=== PATIENT | female | born 1930 | race Caucasian/White ===

== ENCOUNTER 2018-12-22 12:47 | Inpatient (IN) ==
[2018-12-22 15:50] LABS: BASO# 0.04 X1000 (0.0-0.2); BASO% 0.4 % (0.0-0.8); EOS# 0.28 X1000 (0.0-0.7); EOS% 2.8 % (0.0-10.0); HEMATOCRIT 45.3 % (37.0-47.0); HEMOGLOBIN 13.4 g/dL (12.0-16.0); IMM GRAN# 0.03 X1000 (0.0-0.04); IMM GRAN% 0.3 % (0.0-0.5); LYMPH# 2.42 X1000 (1.2-3.4); LYMPH% 24.4 % (20.5-51.1); MCH 29.4 PG (27-31); MCHC 29.6 g/dL (33-37); MCV 99.3 FL (81-99); MONO# 0.74 X1000 (0.11-0.59); MONO% 7.5 % (1.7-9.3); MPV 14.3 FL (7.4-10.4); NEUT# 6.39 X1000 (1.4-6.5); NEUT% 64.6 % (42.2-75.2); PLT 90 X1000 (130-400); RBC 4.56 XMIL (4.2-5.4); RDW 15.4 % (11.5-14.5)
[2018-12-22 16:01] LABS: ALB/GLOB RATIO 1.2; ALBUMIN 3.9 g/dL (3.5-5.0); CALCIUM 9.5 mg/dL (8.8-10.2); POTASSIUM 4.8 mmol/L (3.5-5.1); TOTAL BILIRUBIN 0.38 mg/dL (0.20-1.00); TOTAL PROTEIN 7.2 g/dL (6.3-8.3)
[2018-12-22] MEDS ORDERED: 1/2 NS 1,000 ML IV ONE ×2 (16:13→17:44)
[2018-12-22 16:58] LABS: URINE SOURCE CATH
[2018-12-22 17:03] LABS: BILIRUBIN URINE NEGATIVE (NEGATIVE); BLOOD URINE SMALL (NEGATIVE); COLOR YELLOW; GLUCOSE URINE NEGATIVE (NEGATIVE); KETONE URINE 10 mg/dL (NEGATIVE); LEUKOCYTES URINE LARGE (NEGATIVE); NITRITE URINE POSITIVE (NEGATIVE); PROTEIN URINE 100 mg/dL (NEGATIVE); SP GRAVITY URINE 1.023; TURBIDITY URINE TURBID (CLEAR); UROBILINOGEN URINE NORMAL (NORMAL)
[2018-12-22 17:04] LABS: UR EPITHELIAL CELLS <10 /HPF (<10); URINE BACTERIA 4+ /HPF; URINE RBC <10 /HPF (<10); URINE WBC TNTC /HPF (<10)
[2018-12-22 17:19] LABS: URINE CASTS NONE SEEN; URINE CRYSTALS NONE SEEN; URINE SMALL ROUND CELLS TRANS PRESENT; URINE YEAST NONE SEEN
--- NOTE | 2018-12-22 17:28 | PROVIDER DOCUMENTATION ---
This chart was entered by Kathleen Reyes Scribe, acting as scribe for Mendoza Gonzales MD. HPI-General Adult - General Stated Complaint: DEMENTIA Time Seen by Provider: 12/22/18 13:15 Source: patient, EMS ([facility]) Allergies/Adverse Reactions: Patient Allergies Allergy/AdvReac Type Severity Reaction Status Date / Time No Known Allergies Allergy Verified 11/03/14 12:39 Home Medications: Home Medication List Medication Instructions Recorded Confirmed Last Taken Type Acetaminophen [Tylenol] 650 mg PO Q6H PRN PRN 11/03/14 11/03/14 Unknown History Amlodipine Besylate [Norvasc] 10 mg PO DAILY 11/03/14 11/03/14 11/03/14 07:00 History Aspirin [Aspirin EC] 81 mg PO DAILY 11/03/14 11/03/14 11/03/14 09:00 History norvas Clonidine HCl 0.1 mg PO Q6HR PRN 11/03/14 11/03/14 Unknown History Divalproex [Depakote Sprinkle] 1 cap PO DAILY 11/03/14 11/03/14 11/03/14 09:00 History Mirtazapine [Remeron] 15 mg PO DAILY 11/03/14 11/03/14 11/03/14 09:00 History Multivit,Th Iron,Other Min 1 tab PO DAILY 11/03/14 11/03/14 11/03/14 09:00 History [Thera-M] Omeprazole [Prilosec] 40 mg PO DAILY 11/03/14 11/03/14 11/03/14 05:00 History Sertraline [Zoloft] 50 mg PO DAILY 11/03/14 11/03/14 11/03/14 09:00 History Vitamin T81-Wljeuxfay Factor 1 cap PO DAILY 11/03/14 11/03/14 11/03/14 09:00 History [Martinic] Hydrocodone/Acetaminophen [[place] 1 each PO Q4H PRN PRN #30 tablet 11/06/14 Unknown Rx 10-325 Tablet] Metoprolol [Lopressor] 25 mg PO Q12HR #60 tablet 11/06/14 Unknown Rx Rivaroxaban [Xarelto] 10 mg PO Q24H #30 tablet 11/06/14 Unknown Rx - History of Present Illness -Gen Adult Nature of Presenting Problems: 88 yowf presents to the ed via ems ([email or web address]) from SNF with aggression and dementia has worsened. per ems SNF sts last time pt became this way she had a UTI. pt on exam is nontoxic in appearance and raises her fist at ems when they go to transfer her to the bed. pt refuses to answer questions but is alert and in no distress Location of Pain/Injury: reports: none Pain Radiation: reports: no radiation Quality of Pain: reports: none Severity: reports: mild Onset/Duration: reports: gradual Timing: reports: still present (change is behavior) Context/Activities at Onset: reports: light activity Modifying Factors: improves with: nothing Associated Symptoms: reports: denies symptoms Similar Symptoms Previously?: Yes (UTI) Recently seen or treated by another doctor?: No Review of Systems - Adult - REVIEW OF SYSTEMS - ADULT ROS:: limited per condition (pt refuses to answer question. ros comes from ems) Constitutional: denies: chills, fever Eyes: reports: no symptoms reported Ears, Nose, Mouth & Throat: reports: no symptoms reported Cardiovascular: denies: chest pain, syncope Respiratory: reports: no symptoms reported Gastrointestinal: denies: diarrhea, nausea, vomiting Genitourinary: reports: see HPI, frequent UTI's Musculoskeletal: reports: no symptoms reported Integumentary: reports: no symptoms reported Neurological: denies: dizziness/vertigo, syncope Psychiatric: reports: see HPI, insomnia, other (aggression) Endocrine: reports: no symptoms reported Hematologic/Lymphatic: reports: no symptoms reported Allergic/Immunologic: reports: no symptoms reported All Other Systems: Reviewed and Negative Past History - Adult - PAST MEDICAL HISTORY-ADULT Review of Records: reports: Old Records Reviewed, Nursing Assessment Review, M edications Reviewed, Social history reviewed & non-contributory. Major Childhood Illnesses: reports: denies history Cardiovascular: reports: CAD, HTN Respiratory: reports: denies history Gastrointestinal: reports: denies history Obstetrical/Gynecological: reports: denies history Genitourinary: reports: chronic UTI's Musculoskeletal: reports: denies history Neurological: reports: dementia Endocrine/Immune: reports: denies history Other Conditions: reports: denies history - PRIOR SURGERIES/PROCEDURES Surgical/Procedure History: reports: cardiac stent - IMMUNIZATION STATUS Childhood Immunizations: See Nurse Assessment Flu Vaccine: See Nurse Assessment - FAMILY HISTORY Family History: reviewed, not pertinent - SOCIAL HISTORY Smoking: quit greater than 1 year Substance Use: denies Living Situation: care facility Physical Exam-General - PHYSICAL EXAM-ADULT Exam Limited by: pt does not answers questions and is agressive in behavior/de mentia pt Initial Vital Signs Reviewed: Yes - CONSTITUTIONAL General Appearance: alert, no apparent distress - EYES Eyes: PERRL/EOMI, pink conjunctivae - HEAD, EARS, NOSE, MOUTH & THROAT HENMT: moist mucous membranes - NECK Neck: normal inspection - RESPIRATORY Respiratory: chest non-tender, lungs clear, normal breath sounds - CARDIOVASCULAR Cardiovascular: normal peripheral pulses, regular rate, rhythm - CHEST (BREASTS) Chest/Breast: deferred - GASTROINTESTINAL (ABDOMEN) Abdominal Exam: non tender, soft - MUSCULOSKELETAL Back Exam: other (pt is sitting on stretcher and back is not examined) Extremity: normal inspection - SKIN Integumentary: normal color, normal turgor, warm/dry - NEUROLOGIC Neurologic: negative: facial droop, focal weakness, motor weakness - PSYCHIATRIC Psych/Mental Status: other (does not answer questions but is alert and follows staff with her eyes) Progress - PLAN OF CARE/RESULTS Progress/Plan/Lab Results: Orders Category Date Time Status CBC WITH DIFF [HEME] Stat Lab 12/22/18 13:15 Uncollected COMPREHENSIVE METABOLIC PANEL [CHEM] Stat Lab 12/22/18 13:15 Uncollected URINALYSIS W/POSS RFLX CULT [URINALYSIS] Stat Lab 12/22/18 13:15 Uncollected Result Diagrams: 12/22/18 15:26 12/22/18 15:26 - REASSESSMENT Reassessment #1 Time Reassessed: 14:58 Status: improving (n) Reassessment #2 Time Reassessed: 17:25 Status: unchanged (pt is resting in bed; labs confirm UTI, as well as critical hypernatremia: will admit) - EKG 1 Time of EKG reading by physician:: 14:37 EKG Read and Signed by:: Mendoza Gonzales EKG Interpretation (*Must complete 3 of following elements*): Abnormal Rate: 79 Rhythm: nsr [place]: normal QRS: normal OR Interval: normal Comments: nonspecific ST abnormality - CONSULTS/PCP/HOSPITALIST Notification #1 *Consult/PCP/Hospitalist*: hospitalist dr kay Time Discussed: 17:26 Consult Disposition: Admit Departure - Departure Date of Disposition Decision: 12/22/18 Time of Disposition Decision: 17:28 DIAGNOSIS: Hypernatremia, UTI (urinary tract infection) Disposition: ADMITTED INPATIENT 09 Certified Medical Emergency: Emergent Condition: Serious Referrals and Follow-Ups: Ya Whelan MD [Primary Care Provider] - - Critical Care Note This patient required my direct & personal management of CC.: Yes Total Time (mins): 32 Critical Care Statement: This patient required my direct personal management to treat or rule out processes, the absence of which, could potentiallly result in sudden, clinically significant life or limb threatening deterioration. Attestation - Physician/ [place] Attestation Patient care was provided by Advanced Practice Provider:: No The physician spent face to face time with patient:: Yes Advanced Practice Provider documentation review:: Supervising physician onsite and consulted in the evaluation and care of this patient. The physician did have a face to face encounter with the patient. This chart was documented by the indicated scribe, (Kathleen Reyes Scribe) and accurately reflects the services I performed and decisions made by me, Mendoza Gonzales MD, as attested by the provider's signature.
[2018-12-22] MEDS ORDERED: NS 1,000 ML IV ONE (17:41)
[2018-12-22] MEDS ORDERED: D5W 1,000 ML IV ONE ×3 (17:53→19:00)
--- NOTE | 2018-12-22 18:15 | Diag Imaging Result Doc PS360 ---
EXAM: CHEST-PORTABLE - 12/22/2018 HISTORY: dyspnea TECHNIQUE: Portable chest COMPARISON: November 02 11/16/2014 FINDINGS: Positioning is mildly suboptimal with some limitation of detail at the right apex due to overlapping sternoclavicular joint. Heart size appears within normal limits. 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 There is mild linear atelectasis or scarring at the left base. Lungs otherwise appear grossly clear. There is no pleural effusion or pneumothorax identified. IMPRESSION: Mild linear atelectasis or scarring at left base. No other evidence of acute disease. Electronically signed by Chico Lainez 12/22/2018 6:13 PM
[2018-12-22] MEDS ORDERED: ZOFRAN IV PRN (18:17)
[2018-12-22 18:45] LABS: UR CREAT RANDOM 174.2 mg/dL (11-20); UR PROT RANDOM 141.1 mg/dL
--- NOTE | 2018-12-22 19:29 | HISTORY AND PHYSICAL ---
HISTORY OF PRESENT ILLNESS: Ms. Hardy is an 88-year-old female with a history of advanced dementia, coronary artery disease, hypertension, and urinary incontinence who is brought via EMS from [facility] after the patient was noted to be confused. According to the [facility] report, the patient has had poor oral intake for about 1 week. The patient would not eat or drink anything. The patient at baseline is demented and she is normally verbal, but the nursing staff became concerned when the patient was no longer talking and so she was sent to the ER. The patient will not answer questions and does not follow commands. In the ER, the patient was noted to have a sodium of 179 and a BUN of 132 with a creatinine of 3, and the serum osmolality was noted to be 409. Also, the patient was noted to have a urinary tract infection. In the ER, the patient was started on half-normal saline. PAST MEDICAL HISTORY: 1. Dementia. 2. Coronary artery disease. 3. Urinary incontinence. 4. Hypertension. 5. GERD. PAST SURGICAL HISTORY: None. SOCIAL HISTORY: The patient is an ex-smoker. She does not consume alcoholic beverages or use illicit drugs. The patient is a resident at [facility]. FAMILY HISTORY: Noncontributory due to age. ALLERGIES: No known drug allergies. MEDICATIONS: 1. Aspirin 81 mg p.o. daily. 2. Vitamin B12 500 mcg oral daily. 3. [place] 10/325 one tab oral every 4 hours p.r.n. for pain. 4. Lopressor 25 mg oral every 12 hours. 5. Remeron 7.5 mg oral at bedtime. 6. Multivitamin 1 tab oral daily. 7. Zantac 150 mg oral twice a day. 8. Senna 2 tabs oral twice a day. REVIEW OF SYSTEMS: Unable to obtain due to the patient's altered mental status. PHYSICAL EXAMINATION: VITAL SIGNS: Temperature 97.9 degrees, blood pressure 96/68, heart rate 82, respirations 19, O2 saturation 97% on room air. GENERAL: This is a chronically ill-appearing elderly female lying in bed in no acute distress. SKIN: Poor skin turgor. No rashes. HEAD: Normocephalic, atraumatic. Eyes conjunctiva clear, EOMI, PERRLA. NECK: Supple. No JVD. No lymphadenopathy. HEART: S1, S2 normal. Regular rate and rhythm. No murmurs, rubs, or gallops. LUNGS: Clear to auscultation bilaterally. No wheezing. No rales. ABDOMEN: Positive bowel sounds. Soft, nontender, nondistended. EXTREMITIES: No edema. No cyanosis. No calf tenderness. NEUROLOGIC: The patient is awake, but does not follow commands. She does respond to painful stimuli and she is able to move her arms and legs. LABS: White blood cell count 9.9, hemoglobin 13, hematocrit 45, platelets 90,000. Sodium 179, potassium 4.8, chloride 136, CO2 23, BUN 132, creatinine 3, glucose 115, serum osmolality 409, AST 16, ALT 9, alkaline phosphatase 95, albumin 3.9. UA 4+ bacteria, large leukocytes, positive for WBCs, positive for nitrites. Chest x-ray shows atelectasis or scarring at the left lung base. ASSESSMENT AND PLAN: 1. Severe hypernatremia. This is likely secondary to severe dehydration. The patient will be started on D5W. We will monitor the sodium every 4 hours. We will also monitor the urine output and the patient's mental status closely. 2. Acute kidney injury. This is likely secondary to volume depletion. We will order urine studies. We will also place a Noonan catheter and hydrate the patient and monitor her urine output closely. Will consult Nephrology. 3. Urinary tract infection. The urine culture is currently pending. We will start the patient on IV Rocephin. 4. Dementia. Aware. 5. Thrombocytopenia. Monitor closely. 6. Gastrointestinal prophylaxis. Will start the patient on IV Protonix. cc: Mable Clinton MD [facility]
--- NOTE | 2018-12-22 19:52 | Diag Imaging Result Doc PS360 ---
EXAM: CT HEAD W/O CONTRAST - 12/22/2018 HISTORY: encephalopathy TECHNIQUE: CT head without contrast COMPARISON: 10/07/2012 FINDINGS: There are atrophic changes with ventriculomegaly. The ventricles have increased in size compared to prior, which may relate to progressive atrophy or to normal pressure hydrocephalus. There are some chronic microvascular ischemic changes similar to prior. There is no indication of recent infarct, although acute infarcts may not be immediately visible. There is no evidence of intracranial hemorrhage, mass effect, or midline shift. There is no evidence of skull fracture. IMPRESSION: Atrophic changes and chronic microvascular ischemic changes. Interval ventricular enlargement compared to prior which may relate to progressive atrophy or to normal pressure hydrocephalus. No hemorrhage or mass effect. This exam was performed using automated exposure control, adjustment of mA or kV according to patient size, and/or use of iterative reconstruction technique. Electronically signed by Chico Lainez 12/22/2018 7:49 PM
[2018-12-22] MEDS: ROCEPHIN 1 GM in NS 50 ML IV SCH (20:06)
[2018-12-23] MEDS ORDERED: D5W 1,000 ML IV SCH (04:00)
[2018-12-23 04:26] LABS: BASO# 0.03 X1000 (0.0-0.2); BASO% 0.4 % (0.0-0.8); EOS# 0.42 X1000 (0.0-0.7); HEMATOCRIT 42.6 % (37.0-47.0); HEMOGLOBIN 12.7 g/dL (12.0-16.0); IMM GRAN# 0.02 X1000 (0.0-0.04); IMM GRAN% 0.2 % (0.0-0.5); LYMPH# 2.02 X1000 (1.2-3.4); MCH 29.7 PG (27-31); MCHC 29.8 g/dL (33-37); MCV 99.5 FL (81-99); MONO# 0.62 X1000 (0.11-0.59); MONO% 7.4 % (1.7-9.3); NEUT# 5.32 X1000 (1.4-6.5); PLT 82 X1000 (130-400); RBC 4.28 XMIL (4.2-5.4); RDW 15.3 % (11.5-14.5); WBC 8.43 X1000 (4.8-10.8)
[2018-12-23 04:29] LABS: SODIUM 167 mmol/L (136-145)
[2018-12-23 04:30] LABS: CHLORIDE 133 mmol/L (98-107); POTASSIUM 4.3 mmol/L (3.5-5.1)
[2018-12-23 04:31] LABS: AGAP 10; ALBUMIN 3.7 g/dL (3.5-5.0); BUN 128 mg/dL (8-22); CALCIUM 8.8 mg/dL (8.8-10.2); COSMO 378; CREATININE 2.5 mg/dL (0.5-0.9); GLUCOSE 150 mg/dL (70-104); PHOSPHORUS 3.7 mg/dL (2.7-4.5); TCO2 26 mmol/L (25-35)
[2018-12-23] MEDS: PROTONIX IV SCH (06:22)
[2018-12-23] MEDS: D5W 1,000 ML IV ONE ×2 (06:22→13:02)
--- NOTE | 2018-12-23 07:45 | EKG Report ---
Test Performed on : 12/22/2018 2:37:28 PM Test Reason : ED. NO EKG ORDER FOR MUSE Blood Pressure : / mmHG Vent. Rate : 079 BPM Atrial Rate : 079 BPM P-R Int : 126 ms QRS Dur : 074 ms QT Int : 390 ms P-R-T Axes : 061 -18 074 degrees QTc Int : 447 ms Normal sinus rhythm. Nonspecific ST abnormality Abnormal ECG When compared with ECG of 03-NOV-2014 22:56, No significant change was found Unconfirmed Result
[2018-12-23 08:50] LABS: URINE SOURCE CATH
[2018-12-23 08:55] LABS: BILIRUBIN URINE NEGATIVE (NEGATIVE); BLOOD URINE MODERATE (NEGATIVE); COLOR ORANGE; GLUCOSE URINE NEGATIVE (NEGATIVE); KETONE URINE NEGATIVE (NEGATIVE); LEUKOCYTES URINE LARGE (NEGATIVE); NITRITE URINE POSITIVE (NEGATIVE); PROTEIN URINE 200 mg/dL (NEGATIVE); SP GRAVITY URINE 1.021; TURBIDITY URINE TURBID (CLEAR); UROBILINOGEN URINE NORMAL (NORMAL)
[2018-12-23] MEDS ORDERED: HEPARIN SUBQ SCH (09:00)
[2018-12-23 09:30] LABS: UR EPITHELIAL CELLS <10 /HPF (<10); URINE BACTERIA 4+ /HPF; URINE WBC TNTC /HPF (<10)
[2018-12-23 09:59] LABS: URINE CRYSTALS TRIPLE PHOS PRESENT; URINE YEAST NONE SEEN
--- NOTE | 2018-12-23 12:51 | Diag Imaging Result Doc PS360 ---
EXAM: US RENAL 2 (RETROPER) COMPLETE HISTORY: juan/arf TECHNIQUE: Renal ultrasound COMPARISON: None. FINDINGS: The right kidney measures 7.4 x 4.0 x 3.4 cm. The kidney is hyperechoic and has cortical thinning. No stone or hydronephrosis. No mass. The left kidney measures only 7.3 x 3.2 x 4.4 cm. Increased renal echotexture with cortical thinning. No stone or hydronephrosis. No mass. There is likely fatty infiltration of the liver. IMPRESSION: Small kidneys with increased renal echotexture and cortical thinning likely due to medical renal disease. Electronically signed by Wallace Tomas 12/23/2018 12:48 PM
--- NOTE | 2018-12-23 13:39 | NEPHROLOGY CONSULTATION ---
DATE: 12/23/2018 REASON FOR ADMISSION: 1. Altered mental status. 2. Urinary tract infection. 3. Hypernatremia. 4. Severe dehydration. 5. Acute kidney injury. REASON FOR CONSULTATION: Assist with management, acute kidney injury. 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 According to report, the patient has had extremely poor intake for about a week and had not been eating or drinking anything. Her mental status declined and she was brought to the hospital for further workup and treatment. She was found to have profound hypernatremia with a sodium of 179 and acute kidney injury with a BUN of 132 and a creatinine of 3. Serum osmolality noted to be 409. She was also noted to have a severe urinary tract infection with turbid urine, 2+ protein, moderate blood, positive nitrites, too numerous to count WBCs. She had a FENa of 0.3. She has been admitted for further workup and treatment. She has had IV fluids in the form of D5W infusing overnight with serial labs. Her sodium has come down this morning to 167. Her creatinine has improved to 2.5. Her family is at the bedside. Information is obtained from the chart and from the son. He states that they have recently been told by her physicians that she is actually in end-stage dementia and that they have already made her a DNR at the hospital. He states that she has really forgotten how to eat and is minimally, minimally responsive. PAST MEDICAL HISTORY: 1. Coronary artery disease. 2. Hypertension. 3. Dementia. 4. Urinary incontinence. 5. GERD. PAST SURGICAL HISTORY: None. ALLERGIES: None. FAMILY HISTORY: Noncontributory. SOCIAL HISTORY: Resident of [facility]. No ETOH, tobacco or illicit drug use. MEDICATIONS: Home medications are 1. Aspirin. 2. Vitamin B12. 3. [place]. 4. Lopressor. 5. Remeron. 6. Multivitamin. 7. Zantac. Senna. REVIEW OF SYSTEMS: Unable. PHYSICAL EXAMINATION: Vital Signs: Temperature 98.3 degrees, pulse 77, respiratory rate 16, blood pressure 109/84. Intake 948 mL, output 80 mL. General: This is a chronically ill- appearing, elderly female, resting in bed. She will rouse to verbal stimuli and says hello. She is unable to tell me name, place, time. HEENT: Normocephalic, atraumatic. Her conjunctivae are pink. Her oral mucosa is extremely dry. Neck: Supple. There is no JVD. Cardiovascular: Reveals a regular rate and rhythm without gallop. Pulmonary: She has decreased breath sounds but no adventitious noise noted. Abdomen: Soft. No tenderness elicited upon palpation. : Noonan catheter. Small amount of urine noted. Extremities: No clubbing, cyanosis, edema Integumentary: Skin is pale, warm, and dry. Neurologic: Awake. Does not follow commands. LABORATORY DATA: WBC of 8.4, hemoglobin 12.7. Sodium 167 potassium 4.3, chloride 133, CO2 26, BUN 128, creatinine 2.5. She has a FENa of 0.3. Her urinalysis again with turbid. Urine 2+ protein, moderate blood, positive nitrites, large leukocytes, too numerous to count WBCs, 4+ bacteria, triple phosphorus crystals seen. IMAGING: Head CT and chest x-ray negative. ASSESSMENT/PLAN: 1. Acute kidney injury in the setting of profound intravascular volume depletion. The patient is being appropriately fluid resuscitated and has a modest response in renal function. She has begun making a tiny amount of urine and creatinine has dropped to half a point just overnight. She has no indication for intervention otherwise and quite frankly is not a candidate for any type of chronic intervention such as dialysis. I had a discussion with the son and they are very understanding that with her end-stage dementia that medical management is all that is appropriate. 2. Electrolytes, acid-base balance. Again see #1 for plan. Continue current treatment plan. Dictated by CHU Maharaj for Jacoby Dunne MD Face to face encounter, data reviewed, discussed with Norman Villa on 12/23/18. I agree with the above assessment and plan of care. cc: Jacoby Dunne MD [facility]
[2018-12-23] MEDS ORDERED: D5 1/2 NS 1,000 ML IV SCH (14:30)
[2018-12-23] MEDS: D5W 1,000 ML IV SCH (17:30)
[2018-12-23] MEDS: ROCEPHIN 1 GM in NS 50 ML IV SCH (17:31)
--- NOTE | 2018-12-23 17:39 | PROGRESS NOTE ---
DATE: 12/23/2018 SUBJECTIVE: The patient is resting comfortably in bed. Her son is present at the bedside. OBJECTIVE: Vital Signs: Temperature 98.3 degrees, blood pressure 136/58, heart rate 109, respirations 16, and O2 saturation 98% on room air. General: This is a chronically ill-appearing elderly female lying in bed in no acute distress. Heart: S1, S2 normal. Regular rate and rhythm. Lungs: Equal air entry. No wheezing. No rales. No rhonchi. Abdomen: Positive bowel sounds. Soft, nontender and nondistended. Extremities: No edema. No cyanosis. Neurologic: The patient is awake, but only oriented to self. LABORATORY: Sodium: 170, potassium: 3.5, CO2 26, BUN 128, creatinine 2.5, and glucose 152. ASSESSMENT AND PLAN: 1. Severe hypernatremia. Continue with D5W. We will continue to monitor the sodium closely. Nephrology is following. 2. Acute kidney injury. Continue with IV fluid resuscitation. We will continue to monitor the urine output closely. 3. Urinary tract infection. The urine culture is growing gram-negative rods. Continue on Rocephin pending the results of the culture. 4. Dementia. Aware. 5. Chronic thrombocytopenia. Aware. 6. The patient's mom was updated on the patient's medical condition. The patient is currently a DNR level 1. cc: Mable Clinton MD [facility]
[2018-12-24] MEDS: D5W 1,000 ML IV SCH ×2 (01:05→06:06)
[2018-12-24 04:01] LABS: HEMATOCRIT 36.8 % (37.0-47.0); HEMOGLOBIN 10.9 g/dL (12.0-16.0); MCHC 29.6 g/dL (33-37); MCV 97.9 FL (81-99); PLT 62 X1000 (130-400); RBC 3.76 XMIL (4.2-5.4); RDW 15.1 % (11.5-14.5); WBC 6.45 X1000 (4.8-10.8)
[2018-12-24 04:32] LABS: CALCIUM 8.4 mg/dL (8.8-10.2); PHOSPHORUS 2.5 mg/dL (2.7-4.5); POTASSIUM 3.5 mmol/L (3.5-5.1)
[2018-12-24] MEDS: PROTONIX IV SCH (06:06)
[2018-12-24] MEDS: SODIUM CHLORIDE 0.9% INJ SCH (06:06)
--- NOTE | 2018-12-24 08:59 | PROGRESS NOTE ---
DATE: 12/24/2018 SUBJECTIVE: The patient is resting comfortably in bed. No acute events noted overnight. OBJECTIVE: Vital Signs: Temperature 97.9 degrees, blood pressure 120/57, heart rate 64, respirations 14, O2 saturation 91% on room air. General: This is a chronically ill-appearing elderly female, lying in bed in no acute distress. Heart: S1, S2 normal. Regular rate and rhythm. Lungs: Equal air entry bilaterally. No wheezing. No rales. No rhonchi. Abdomen: Positive bowel sounds. Soft, nontender, nondistended. Extremities: No edema. No cyanosis. No calf tenderness. Neurologic: The patient is awake but demented. LABORATORY DATA: White blood cell count 6.4, hemoglobin 10, hematocrit 36, platelets 62,000. Sodium 156, potassium 3.5, chloride 122, CO2 24, BUN 94, creatinine 2, glucose 169, phos 2.5, albumin 3. Urine culture is growing Proteus. ASSESSMENT AND PLAN: 1. Hypernatremia. Slowly improving. Continue on D5W. Management as per the release engineer. 2. Acute kidney injury. Slowly improving. 3. Urinary tract infection secondary to Proteus. Continue on Rocephin. 4. Thrombocytopenia. The patient's platelet count continues to drop. We will consult with Hematology. 5. Dementia. Aware. 6. Constipation. Will start laxative therapy. 7. Protein calorie malnutrition. Will start megace and Ensure. 8. Disposition. The patient is currently a DNR level 1. I updated the patient's son on the patient's medical condition. cc: Mable Clinton MD [facility]
--- NOTE | 2018-12-24 09:54 | NEPHROLOGY PROGRESS NOTE ---
DATE: 12/24/2018 SUBJECTIVE: Patient resting in bed. She will arouse to verbal and tactile stimuli. She does not follow commands. OBJECTIVE: Vital Signs: Temperature 98.2 degrees, pulse 79, respiratory rate 14, blood pressure 114/32. Intake 566 mL, output 350 mL via Noonan catheter. General: This is an elderly female, resting in bed. She is chronically ill-appearing and demented. HEENT: Normocephalic, atraumatic. ARNIE. Neck: Supple without JVD. Cardiovascular: Regular rate and rhythm. No murmur. Pulmonary: She has equal excursion. She has decreased breath sounds bilaterally. She has no increased work of breathing. Abdomen: Soft. No tenderness elicited on palpation. : Noonan catheter. Extremities: No clubbing, cyanosis, or edema. Integumentary: Skin is pale, warm, and dry. LABORATORY DATA: WBC of 6.4, hemoglobin 10.9. Sodium 158, potassium 3.5, CO2 of 24, BUN 94, creatinine 2.0. ASSESSMENT AND PLAN: Hypernatremia and acute kidney injury in the setting of intravascular volume depletion. The patient has been successfully fluid resuscitated over the last 24 hours. It appears that she has reached a euvolemic state on her exam. Will decrease her intravenous fluids to 75 mL an hour, continue at D5 only secondary to the fact that she still has a sodium of 158. Dictated by CHU Maharaj for Jacoby Dunne MD Face to face encounter, data reviewed, discussed with Norman Villa on 12/24/18. I agree with the above assessment and plan of care. cc: Jacoby Dunne MD [facility]
[2018-12-24] MEDS ORDERED: BLISTEX MEDICATED BERRY LIP BALM TOP PRN (10:10)
--- NOTE | 2018-12-24 10:57 | Diag Imaging Result Doc PS360 ---
EXAM: ABDOMEN FLAT/UPRIGHT 12/24/2018 HISTORY: constipation TECHNIQUE: Flat and upright abdomen portable at 1040 COMMENT: There is stool throughout the colon. There is no evidence of organomegaly or mass. The stomach and small bowel are not distended. IMPRESSION: Constipation. Electronically signed by Perico Bustillos 12/24/2018 10:55 AM
--- NOTE | 2018-12-24 10:58 | Diag Imaging Result Doc PS360 ---
EXAM: CHEST-PORTABLE 12/24/2018 HISTORY: dyspnea TECHNIQUE: AP portable at 1038 COMMENT: There is obscuration of the left heart border which may be in part due to a fat pad. The patient is less rotated to the right than on the previous study of 12/22/2018. Compared to 11/03/2014 the left costophrenic angle is more opacified however. IMPRESSION: Lingular and/or left lower lobe atelectasis in the costophrenic angle region. Electronically signed by Perico Bustillos 12/24/2018 10:56 AM
[2018-12-24 13:27] LABS: INR 1.05; PROTIME 13.9 Seconds (11.0-16.0); PTT 25.8 Seconds (22.3-41.8)
[2018-12-24] MEDS: MEGACE LIQUID PO SCH ×2 (14:01→21:21)
[2018-12-24] MEDS: COLACE PO SCH (14:07)
[2018-12-24] MEDS: MIRALAX PO SCH (14:07)
--- NOTE | 2018-12-24 18:37 | HEMO/ONC CONSULTATION ---
DATE: 12/24/2018 CONSULTATION REQUESTED BY: Hospitalist service. CONSULTATION FOR: Thrombocytopenia. HISTORY OF PRESENT ILLNESS: Ms. Hardy is an 88-year-old female who initially presented to the [facility] Emergency Department with acute altered mental status. The patient has a history of dementia but had become combative and delirious. Upon presentation she is found to be severely hypernatremic with a sodium of 176. She also found to be in acute renal failure. She also has a UTI and is currently taking Rocephin. On presentation she had a platelet count of 90,000. Is now fallen to 62,000 we have been consulted for further evaluation and treatment. PAST MEDICAL HISTORY: 1. Seizure disorder. 2. Dementia. 3. Coronary artery disease. 4. Hypertension. PAST SURGICAL HISTORY: None. Of note, all the patient's past medical history, past surgical history and other information coming from the chart. The patient is demented and unable to answer any questions. SOCIAL HISTORY: Patient is an ex-smoker. She does not use any alcoholic beverages or illicit drugs. She is a resident of [facility]. FAMILY HISTORY: There is none documented. Again there is no one at her bedside and patient unable to answer questions. REVIEW OF SYSTEMS: Unable to obtain due to the patient's current state. PHYSICAL EXAMINATION: Vital Signs: Temperature 97.6 degrees, heart rate 64, respirations 16, blood pressure 104/42, O2 saturation 100% on room air. General: This is an elderly female who is in her hospital bed. There is no one at bedside. She does not answer any questions. She is alert and awake. She just mumbles when you speak to her though. HEENT: Head normocephalic, atraumatic. Pupils appear to be okay. Gross auditory acuity intact. Assume that the patient can hear but unsure. Cardiovascular: S1, S2 heard. Respiratory: Coarse breath sounds noted. Gastrointestinal: Soft. Positive bowel sounds. Musculoskeletal: She has arthritic changes throughout. Extremities: No edema. Neurologic: Again the patient is alert and awake but unable to tell she is oriented. LABS AND STUDIES: Platelet count 62,000 as previously mentioned. White count 6.45, hemoglobin 10.9 today. Sodium is down to 156, creatinine is down to 2.0. ASSESSMENT AND PLAN: 1. Thrombocytopenia. Review of historical labs showed the patient previously had normal platelet count back in 2014. We do not have any more recent labs to compare to. From review of the chart, it does not look like she has been exposed to heparin this hospitalization or any time in the past. She has been recently started on Rocephin but she came in with a low platelet count. We suspected this could possibly be nutritional. We are going go ahead and check vitamin studies. Will also make sure to rule out DIC. Otherwise will just monitor the platelet count closely and plan to provide supportive care as needed. 2. Severe hypernatremia. Continue current management per the primary team. 3. Acute renal injury. This seems to be improving with hydration. Continue per the primary team. 4. Urinary tract infection. Again the patient is on Rocephin as per above. We want thank you for consulting us on Ms. Hardy, will continue follow along adjust our treatment plan per her hospital course. Dictated by JESI Pretty for Namoi Hooper MD cc: Naomi Hooper MD I have seen and examined the patient and the above note reflects my history, exam, assessment and plan. Naomi LEA
[2018-12-24] MEDS: ROCEPHIN 1 GM in NS 50 ML IV SCH (18:52)
[2018-12-24] MEDS: DULCOLAX PR SCH (21:21)
[2018-12-24] MEDS: SENOKOT PO SCH ×2 (21:21→21:50)
[2018-12-25] MEDS: D5W 1,000 ML IV SCH (05:36)
[2018-12-25 05:46] LABS: HEMATOCRIT 35.4 % (37.0-47.0); HEMOGLOBIN 10.9 g/dL (12.0-16.0); MCH 29.8 PG (27-31); MCHC 30.8 g/dL (33-37); MCV 96.7 FL (81-99); PLT 59 X1000 (130-400); RBC 3.66 XMIL (4.2-5.4); RDW 14.6 % (11.5-14.5); WBC 4.65 X1000 (4.8-10.8)
[2018-12-25 05:49] LABS: HEMOGLOBIN A1C 5.1 % (4.8-6.0)
[2018-12-25 06:12] LABS: ALBUMIN 2.9 g/dL (3.5-5.0); CALCIUM 8.6 mg/dL (8.8-10.2); CREATININE 1.7 mg/dL (0.5-0.9); PHOSPHORUS 2.7 mg/dL (2.7-4.5); POTASSIUM 3.6 mmol/L (3.5-5.1)
[2018-12-25] MEDS: PROTONIX IV SCH (08:24)
[2018-12-25] MEDS: MEGACE LIQUID PO SCH ×2 (09:35→22:18)
[2018-12-25] MEDS: SENOKOT PO SCH ×3 (09:35→22:22)
[2018-12-25] MEDS: MIRALAX PO SCH (09:35)
[2018-12-25] MEDS: COLACE PO SCH (09:35)
[2018-12-25] MEDS ORDERED: NS 250 ML ONE (10:13)
--- NOTE | 2018-12-25 14:08 | NEPHROLOGY PROGRESS NOTE ---
DATE: 12/25/2018 SUBJECTIVE: Patient awake. She verbalizes. Her son at the bedside stated she recognized him and called him by name today, which is the first time she had done that in many weeks or possibly months. OBJECTIVE: Vital Signs: Temperature 97.4 degrees, pulse 95, respiratory rate 18, blood pressure 103/56, intake 1.1 L, output 325 mL. General: This is a chronically ill- appearing, elderly female, resting in bed. She is awake and alert. She is confused and does not follow commands. HEENT: Normocephalic, atraumatic. ARNIE. Neck: Supple. No JVD. Cardiovascular: Regular rate and rhythm. No murmur or gallop. Pulmonary: Equal excursion. Clear. Abdomen: Soft. Positive bowel sounds. : Noonan catheter. Extremities: No clubbing, cyanosis, or edema. Integumentary: Skin is warm and dry, pale. LAB DATA: WBC 4.6, hemoglobin 10.9. Platelets 62,000, sodium 150, potassium 3.6, CO2 24, chloride 116, BUN 72, creatinine 1.7. ASSESSMENT AND PLAN: 1. Acute kidney injury, hypernatremia in the setting of intravascular volume depletion. Patient has had continued improvement in both her creatinine and sodium levels with her current IV fluids at D5. It is noted that the patient's IV infiltrated last night. They have been unsuccessful to replace an IV. From a renal perspective, we would be acceptable with a PICC line in order to maintain continued IV fluids as the patient clearly by her labs and on exam is not completely euvolemic at this time. She does not ask for water and maintaining hydration will be important in moving forward. We did discuss this with the son at the bedside that fluids would likely need to be pushed for the patient. She will not ask for them secondary to her advanced dementia. 2. UTI Proteus mirabilis noted. No changes to antibiotics as she is on ceftriaxone. Should provide coverage. Dictated by CHU Mahaarj for Jacoby Dunne MD Face to face encounter, data reviewed, discussed with Norman Villa on 12/25/18. I agree with the above assessment and plan of care. cc: Jacoby Dunne MD [facility]
--- NOTE | 2018-12-25 15:19 | PROGRESS NOTE ---
DATE: 12/25/2018 SUBJECTIVE: The patient is resting comfortably in bed. No acute events noted overnight. The patient is still not eating or drinking very much as per the nursing staff. OBJECTIVE: Vital Signs: Temperature 97.4 degrees, blood pressure 82/43, heart rate 94, respirations 18, O2 saturation is 97% on room air. General: This is an elderly female lying in bed, in no acute distress. Heart: S1, S2 normal. Regular rate and rhythm. Lungs: Clear to auscultation bilaterally. Abdomen: Positive bowel sounds. Soft, nontender, nondistended. Extremities: No edema. No cyanosis. No calf tenderness. Neurologic: The patient is only oriented to self. LABS: Sodium 150, potassium 3.6, chloride 116, CO2 24, BUN 72, creatinine 1.7, glucose 131, calcium 8.6, phosphorus 2.7. ASSESSMENT AND PLAN: 1. Hypernatremia. Improved. Continue on D5W. The patient continues to refuse to eat or drink. 2. Acute kidney injury. Improved. 3. Protein calorie malnutrition. Continue on Megace and Ensure. The patient continues to refuse to eat or drink. The patient may be depressed. 4. Dementia. Aware. 5. Thrombocytopenia. Management as per the formal service waiter. 6. Constipation. Continue on laxative therapy. 7. Urinary tract infection secondary to Proteus. Continue on Rocephin. 8. Depression. Will start zoloft. 9. Disposition. The patient is currently a DNR level 1. Palliative care is following. cc: Mable Clinton MD MTDD
[2018-12-25] MEDS: ROCEPHIN 1 GM in NS 50 ML IV SCH (17:21)
[2018-12-25] MEDS: ZOLOFT PO SCH (22:18)
[2018-12-25] MEDS: DULCOLAX PR SCH (22:18)
[2018-12-26] MEDS: PROTONIX IV SCH ×2 (05:48→06:43)
[2018-12-26] MEDS: SODIUM CHLORIDE 0.9% INJ SCH (05:48)
[2018-12-26 06:18] LABS: HEMATOCRIT 34.1 % (37.0-47.0); HEMOGLOBIN 10.6 g/dL (12.0-16.0); MCH 29.9 PG (27-31); MCHC 31.1 g/dL (33-37); MCV 96.1 FL (81-99); PLT 76 X1000 (130-400); RBC 3.55 XMIL (4.2-5.4); RDW 14.4 % (11.5-14.5); WBC 4.57 X1000 (4.8-10.8)
[2018-12-26 06:41] LABS: ALBUMIN 2.7 g/dL (3.5-5.0); CALCIUM 8.2 mg/dL (8.8-10.2); CREATININE 1.3 mg/dL (0.5-0.9); PHOSPHORUS 2.4 mg/dL (2.7-4.5); POTASSIUM 3.6 mmol/L (3.5-5.1)
--- NOTE | 2018-12-26 07:21 | NEPHROLOGY PROGRESS NOTE ---
DATE: 12/26/2018 SUBJECTIVE: Patient resting in bed. She is awake. She responds pleasantly to me. OBJECTIVE: Vital Signs: Temperature 98.2 degrees, pulse 109, respiratory rate 18, blood pressure 139/91. Intake 346 mL, output 600 mL. General: This is an elderly female, resting in bed. She is awake and alert. She continues with confusion at her baseline. HEENT: Normocephalic, atraumatic. ARNIE. Oral mucosa is moist today. Neck: Supple without JVD. Cardiovascular: Regular rate and rhythm without murmur or gallop. Pulmonary: Clear bilaterally with equal excursion. Abdomen: Soft, with positive bowel sounds. : She has a Noonan catheter with pale, clear-yellow urine. Extremities: There is no clubbing, cyanosis, or edema. Integumentary: Skin remains thin, warm and dry, pale. LABORATORY DATA: Sodium 146, potassium 3.6, CO2 of 22, chloride 113, BUN 54, creatinine 1.3 (1.7). Her albumin is 2.7. ASSESSMENT AND PLAN: Acute kidney injury, hypernatremia in the setting of intravascular volume depletion with continued improvement. She remains on D5W at 50 mL an hour. Her IV was restarted overnight. Family and staff are encouraging oral intake. Her creatinine has improved to 1.3. Anticipate by tomorrow, we should be likely able to stop her IV fluids. Again, adequate oral intake will be imperative moving forward to not have a relapse with dehydration and subsequent acute kidney injury again. Dictated by CHU Maharaj for Jacoby Dunne MD Face to face encounter, data reviewed, discussed with Norman Villa on 12/26/18. I agree with the above assessment and plan of care. cc: Jacoby Dunne MD [facility]
[2018-12-26] MEDS: MEGACE LIQUID PO SCH ×2 (09:15→22:44)
[2018-12-26] MEDS: COLACE PO SCH (09:16)
[2018-12-26] MEDS: MIRALAX PO SCH (09:16)
[2018-12-26] MEDS: D5W 1,000 ML IV SCH (09:17)
[2018-12-26] MEDS: SENOKOT PO SCH ×2 (09:17→22:44)
--- NOTE | 2018-12-26 15:56 | PROGRESS NOTE ---
DATE: 12/26/2018 SUBJECTIVE: Today Ms. Hardy refers to be doing okay. She continues to be remarkably confused, but it seems like that is her baseline. OBJECTIVE: Vital signs: Blood pressure is 195/36, pulse over 76, respiration is 16, temperature 97.7 degrees. General: Ms. Hardy is an 88-year-old elderly female. She is in bed. No distress. Mucosa is pink and moist. Anicteric. Acyanotic. Neck is supple. Chest: Good air entry bilaterally. No crepitations. No rhonchi. Cardiovascular: Regular rate and rhythm. No murmurs. Abdomen: Soft. Extremities: No pedal edema. Central Nervous System: Patient is awake, alert. She follows some basic commands, but for most part, she does not know where she is. She does not know today. LABORATORY DATA: WBC is 4.57, hemoglobin is 10.6, platelet count of 76,000. Chemistry is also reviewed, sodium 146, potassium 3.6, chloride is 111, bicarbonate is 22, creatinine is down to 1.3. INTAKE AND OUTPUT: Urine output was 600. The patient is currently in positive balance of 3493. ASSESSMENT: 1. Altered mental status on presentation, presumably due to metabolic encephalopathy on baseline dementia. 2. Severe hypernatremia on presentation, improving. 3. Acute kidney injury secondary to volume depletion, improved. 4. Pancytopenia. Patient is being followed by Hematology/Oncology. 5. Proteus urinary tract infection. Patient is currently on ceftriaxone. Today is day 4. Plan to treat for a total of 7 days. This can be transitioned to oral Augmentin once patient is ready for discharge. 6. Dementia. cc: Silvestre Schuler MD
[2018-12-26] MEDS: ROCEPHIN 1 GM in NS 50 ML IV SCH (17:24)
[2018-12-26] MEDS: ZOLOFT PO SCH (22:44)
[2018-12-26] MEDS: DULCOLAX PR SCH (22:45)
[2018-12-27 05:30] LABS: RETIC% 1.01 % (0.8-2.1); RETIC-HE 34.2 PG (28.2-36.6)
[2018-12-27 05:38] LABS: EOS% 4.5 % (0.0-10.0); HEMATOCRIT 30.5 % (37.0-47.0); HEMOGLOBIN 9.8 g/dL (12.0-16.0); IMM GRAN% 0.5 % (0.0-0.5); MCH 29.2 PG (27-31); MCHC 32.1 g/dL (33-37); MCV 90.8 FL (81-99); MONO% 7.9 % (1.7-9.3); NEUT# 2.43 X1000 (1.4-6.5); NEUT% 60.1 % (42.2-75.2); PLT 87 X1000 (130-400); RBC 3.36 XMIL (4.2-5.4); RDW 13.9 % (11.5-14.5); WBC 4.04 X1000 (4.8-10.8)
[2018-12-27 05:39] LABS: EOS# 0.18 X1000 (0.0-0.7); IMM GRAN# 0.02 X1000 (0.0-0.04); LYMPH# 1.09 X1000 (1.2-3.4); MONO# 0.32 X1000 (0.11-0.59)
[2018-12-27 05:53] LABS: IRON SATURATION 22 %; TIBC 171 ug/dL; TOTAL IRON 37 ug/dL (49-151); UNBOUND IRON 134 ug/dL (112-346)
[2018-12-27] MEDS: D5W 1,000 ML IV SCH (05:54)
[2018-12-27 05:55] LABS: ALBUMIN 2.8 g/dL (3.5-5.0); CALCIUM 8.3 mg/dL (8.8-10.2); CREATININE 1.2 mg/dL (0.5-0.9); MAGNESIUM 2.2 mg/dL (1.5-2.7); PHOSPHORUS 2.2 mg/dL (2.7-4.5); POTASSIUM 3.4 mmol/L (3.5-5.1)
[2018-12-27] MEDS: PROTONIX IV SCH ×2 (05:55→06:57)
[2018-12-27] MEDS: SODIUM CHLORIDE 0.9% INJ SCH (05:55)
[2018-12-27] MEDS: SENOKOT PO SCH ×3 (09:09→20:57)
[2018-12-27] MEDS: COLACE PO SCH (09:09)
[2018-12-27] MEDS: MEGACE LIQUID PO SCH ×2 (09:10→20:48)
[2018-12-27] MEDS: MIRALAX PO SCH (09:10)
--- NOTE | 2018-12-27 13:53 | NEPHROLOGY PROGRESS NOTE ---
DATE: 12/27/2018 SUBJECTIVE: She opens her eyes and looks at me, but her speech was uninterpretable to me. OBJECTIVE: Vital Signs: Blood pressure 91/61, heart rate 77, respirations 16, afebrile. General: No acute distress. Skin: Warm and dry. Conjunctivae are pink. Neck: Neck veins are not distended. Heart: Regular. Lungs: Equal. Extremities: Have no edema. IMPRESSION: Acute kidney injury. Progressive improvement. Hypernatremia is resolved. I will sign off today, but if I can be of further assistance, please do not hesitate to call. cc: Jacoby Dunne MD
--- NOTE | 2018-12-27 13:57 | HEMO/ONC PROGRESS NOTE ---
DATE: 12/27/2018 We were originally consulted on Ms. came in due to thrombocytopenia. We believe it is medication induced versus nutritional. Her platelet count now improving. We are going to go ahead and sign off. But we will be available as needed while she is in the hospital. She will not require any outpatient follow up with us upon discharge. Dictated by JESI Pretty for Naomi Hooper MD cc: Naomi Hooper MD
--- NOTE | 2018-12-27 17:12 | PROGRESS NOTE ---
DATE: 12/27/2018 SUBJECTIVE: This morning Ms. Hardy refers to be doing a little better. Her son was at the bedside at the time of the encounter. The patient had physical therapy today as well. OBJECTIVE: Vital signs: Blood pressure 130/78, pulse of 63, respirations 16, temperature 97.8. The patient is saturating 100% on room air. General: Ms. Hardy is an 88-year-old elderly female. She is in bed in no distress. HEENT: Mucosa is pink and moist. Anicteric. Acyanotic. Neck: Supple. Chest: Good air entry bilaterally. There were no crepitations, no rhonchi. Cardiovascular: Regular rate and rhythm. No murmurs, no rubs, no gallops. GI: Abdomen soft, nontender. Bowel sounds present. Extremities: No pedal edema. FARM TECHNICIAN: The patient is awake, alert. Did follow some basic commands. Was able to recognize her son in the room. LABORATORY DATA: CBC is reviewed. The patient does have pancytopenia. Platelet count seems to be getting better. Chemistry is also reviewed. Creatinine is down to 1.7. Sodium is normalized at 138. ASSESSMENT/PLAN: 1. Altered mental status on presentation secondary to metabolic encephalopathy on baseline dementia. 2. Severe hyponatremia on presentation ,resolved. 3. Acute kidney injury secondary to volume depletion, improved. 4. Pancytopenia. Patient has been evaluated by Hematology-Oncology. 5. Proteus urinary tract infection. The patient is on day 5 of ceftriaxone. 6. Advanced dementia noted. 7. Limited mobility due to old age and advanced dementia noted. This morning we think Ms. Hardy is doing a lot better. I think she has reached her maximum benefit during her hospital course. The son wants a little bit more physical therapy with her before she goes to the long term. We are going to keep her overnight and trend her sodium to see if it continues to be within the normal range, and we are also going to trend her renal function to make sure that it is back to normal and hopefully get her back to the long term on Sunday or Sunday. cc: Silvestre Schuler MD MTDD
[2018-12-27] MEDS: AUGMENTIN LIQUID PO SCH (20:47)
[2018-12-27] MEDS: ZOLOFT PO SCH (20:48)
[2018-12-27] MEDS: DULCOLAX PR SCH ×2 (20:49→21:00)
[2018-12-28] MEDS: SODIUM CHLORIDE 0.9% INJ SCH (06:42)
[2018-12-28] MEDS: PROTONIX IV SCH (06:42)
[2018-12-28 06:58] LABS: ALBUMIN 2.9 g/dL (3.5-5.0); CALCIUM 8.1 mg/dL (8.8-10.2); PHOSPHORUS 2.9 mg/dL (2.7-4.5); POTASSIUM 4.1 mmol/L (3.5-5.1)
--- NOTE | 2018-12-28 09:34 | PROGRESS NOTE ---
DATE: 12/28/2018 SUBJECTIVE: This morning, Ms. Hardy is fairly stable. No new complaints. The son was not at the bedside at the time of the encounter. The patient was being changed by the nurse city carrier assistant. OBJECTIVELY: Vital signs: Blood pressure 91/73, pulse of 63, respiration is 12, temperature 98.7 degrees. General: Ms. Hardy is an 88-year-old elderly female. She is in bed in no distress. HEENT: Mucosa is pink and moist. Anicteric. Acyanotic. Neck: Supple. Chest: Clear to auscultation. Cardiovascular: Regular rate and rhythm. Abdomen: Soft, nontender. Bowel sounds present. Extremities: No pedal edema. Central nervous system: Patient is awake, alert, will follow some basic commands but she is, for most part, very quiet and not very interacting. Skin: The patient has multiple skin tags and multiple keratoses on the skin. LABORATORY DATA: Has been reviewed. Creatinine is down to 1.0. Sodium is 142. ASSESSMENT: 1. Altered mental status on presentation secondary to metabolic encephalopathy and baseline dementia. Patient is back to her baseline. 2. Severe hypernatremia on presentation, resolved. 3. Acute kidney injury secondary to volume depletion, improved. 4. Pancytopenia. 5. Proteus urinary tract infection. We have switch antibiotic to PO Augmentin. 6. Advanced Alzheimer dementia. 7. Limited mobility due to old age and advanced dementia. PLAN: So today we are going to continue to encourage adequate oral hydration. Continue with the patient's current medications. Antimicrobial has been switched to p.o. Augmentin to complete the total duration of therapy. cc: Silvestre Schuler MD MTDD
[2018-12-28] MEDS: MEGACE LIQUID PO SCH ×2 (10:09→23:36)
[2018-12-28] MEDS: AUGMENTIN LIQUID PO SCH ×2 (10:10→23:37)
[2018-12-28] MEDS: SENOKOT PO SCH ×2 (10:10→23:36)
[2018-12-28] MEDS: COLACE PO SCH (10:11)
[2018-12-28] MEDS: MIRALAX PO SCH (10:20)
[2018-12-28] MEDS: ZOLOFT PO SCH (23:36)
[2018-12-28] MEDS: DULCOLAX PR SCH (23:37)
[2018-12-29] MEDS: SODIUM CHLORIDE 0.9% INJ SCH (06:32)
[2018-12-29] MEDS: PROTONIX IV SCH (06:32)
[2018-12-29] MEDS: MEGACE LIQUID PO SCH ×2 (11:11→21:06)
[2018-12-29] MEDS: AUGMENTIN LIQUID PO SCH ×2 (11:11→21:06)
[2018-12-29] MEDS: SENOKOT PO SCH ×2 (11:12→21:07)
[2018-12-29] MEDS: COLACE PO SCH (11:12)
[2018-12-29] MEDS: MIRALAX PO SCH (11:12)
--- NOTE | 2018-12-29 14:36 | PROGRESS NOTE ---
DATE: 12/29/2018 SUBJECTIVE: This morning Ms. Hardy referred to be doing okay, did not really have any new complaints. She said she had eaten her breakfast and took some of her lunch as well. OBJECTIVE: Vitals: Blood pressure is 134/97, pulse of 76, respiration is 20, temperature 98.5 degrees, patient is saturating 100% on room air. General: Ms. Hardy is an 88-year-old elderly female she is in bed no distress. Mucosa is pink and moist. Anicteric. Acyanotic. Neck: Supple. Chest: Clear to auscultation. Cardiovascular: Regular rate and rhythm. Abdomen: Soft. Bowel sounds present. INCINERATOR ATTENDANT: Patient is awake, alert, followed basic commands. Multiple skin keratosis noted. LABORATORY DATA: None for today. Patient had 2 bowel movement documented today. She has been taking bites of the diet part. For most part she seems to be refusing them. I reviewed her medications and no changes. ASSESSMENT: 1. Altered mental status on presentation resolved. 2. Advanced Alzheimer dementia. 3. Severe hypernatremia on presentation resolved. 4. Acute kidney injury secondary to volume depletion improved. 5. Pancytopenia. Will check another CBC tomorrow morning. 6. Proteus mirabilis urinary tract infection. Patient was on IV ceftriaxone. This has been switched to p.o. Augmentin to complete a total of 7 days . 7. Limited mobility due to old age and advanced dementia. Fall precautions are advised. cc: Silvestre Schuler MD MTDD
[2018-12-29] MEDS: ZOLOFT PO SCH (21:06)
[2018-12-29] MEDS: DULCOLAX PR SCH (21:07)
[2018-12-30 06:15] LABS: BASO# 0.02 X1000 (0.0-0.2); BASO% 0.4 % (0.0-0.8); HEMATOCRIT 32.7 % (37.0-47.0); HEMOGLOBIN 10.3 g/dL (12.0-16.0); IMM GRAN# 0.03 X1000 (0.0-0.04); IMM GRAN% 0.6 % (0.0-0.5); LYMPH% 31.6 % (20.5-51.1); MCHC 31.5 g/dL (33-37); MCV 92.1 FL (81-99); MONO# 0.64 X1000 (0.11-0.59); MONO% 12.6 % (1.7-9.3); MPV 13.6 FL (7.4-10.4); NEUT# 2.57 X1000 (1.4-6.5); NEUT% 50.8 % (42.2-75.2); PLT 144 X1000 (130-400); RBC 3.55 XMIL (4.2-5.4); RDW 14.9 % (11.5-14.5); WBC 5.06 X1000 (4.8-10.8)
[2018-12-30] MEDS: SODIUM CHLORIDE 0.9% INJ SCH (06:25)
[2018-12-30] MEDS: PROTONIX IV SCH (06:25)
[2018-12-30 06:47] LABS: ALBUMIN 2.8 g/dL (3.5-5.0); CALCIUM 8.7 mg/dL (8.8-10.2); PHOSPHORUS 2.7 mg/dL (2.7-4.5); POTASSIUM 3.9 mmol/L (3.5-5.1)
[2018-12-30] MEDS: COLACE PO SCH (11:39)
[2018-12-30] MEDS: SENOKOT PO SCH ×2 (11:40→21:10)
[2018-12-30] MEDS: MIRALAX PO SCH (11:40)
[2018-12-30] MEDS: AUGMENTIN LIQUID PO SCH (11:57)
[2018-12-30] MEDS: MEGACE LIQUID PO SCH ×2 (11:57→21:09)
--- NOTE | 2018-12-30 14:03 | PROGRESS NOTE ---
DATE: 12/30/2018 SUBJECTIVE: This morning Ms. calles continues to be fairly the same. No new changes. No family member at the bedside. Per the nursing staff, she is taking just barely minimum. OBJECTIVE: Vital signs: Blood pressure is 117/42, pulse of 59 respiration is 18, temperature 97.4 degrees. General: Ms. Hardy is an 88-year-old elderly female. She is in bed no distress. HEENT: Mucosa is pink and moist. Anicteric. Acyanotic. Neck: Supple. Chest: Clear to auscultation. Cardiovascular: Regular rate and rhythm. Abdomen: Soft. Extremities: No pedal edema. GRINDING OPERATOR: Patient is sleepy but easily arousable. Mumbles some words which for most part they are non comprehensible. She will move all extremities. Skin: Patient has multiple skin keratoses. LABORATORY DATA: WBC is 5.06, hemoglobin is 10.3, platelet count of 144,000. Chemistry is also reviewed. It is completely within normal range. Albumin is low. ASSESSMENT: 1. Altered mental status on presentation, presumably metabolic encephalopathy improved. 2. Advanced Alzheimer's dementia. 3. Severe hypernatremia on presentation resolved. 4. Acute kidney injury secondary to volume depletion on presentation resolved. 5. Pancytopenia resolved. 6. Proteus mirabilis urinary tract infection. Treated. 7. Limited mobility due to old age and advanced dementia. 8. Limited oral intake. I think this is also just related to her severe Alzheimer's dementia. The patient is taking just bare minimum here in the hospital. This morning she just took some bites. She drank 740 in terms of fluid yesterday. She has only taken just about 30 this morning. We will continue to encourage the staff to give her liquid. Hopefully, we can get her to the assisted tomorrow. cc: Silvestre Schuler MD
[2018-12-30] MEDS: ZOLOFT PO SCH (21:10)
[2018-12-31] MEDS: DULCOLAX PR SCH (03:52)
[2018-12-31] MEDS ORDERED: PROTONIX PO SCH (07:00)
[2018-12-31] MEDS: SENOKOT PO SCH (08:11)
[2018-12-31] MEDS: COLACE PO SCH (08:12)
[2018-12-31] MEDS: MIRALAX PO SCH (08:12)
[2018-12-31] MEDS: MEGACE LIQUID PO SCH (08:12)
[2018-12-31 11:55] VITALS: BP 132/65
--- NOTE | 2018-12-31 12:18 | DISCHARGE SUMMARY ---
ADMISSION DATE: 12/22/2018 DISCHARGE DATE: 12/31/2018 DISPOSITION: Back to [facility]. FOLLOWUP: 1. Will be with her primary care provider, Ms. Ya Whelan. 2. The medical staff at [facility]. CONSULTATION DURING THIS ADMISSION: 1. Nephrology was consulted. The patient was seen by Dr. Dunne. 2. Hematology/Oncology was consulted. The patient was seen by Dr. Hooper. INVASIVE PROCEDURES DONE DURING THIS ADMISSION: None. IMAGING STUDIES OF SIGNIFICANCE: 1. A chest x-ray showed mild linear atelectasis or scarring. 2. A CT scan of the head showed no hemorrhage or mass effect. There is chronic changes and chronic microvascular ischemic changes. 3. A repeat chest x-ray showed left lower lobe atelectasis. 4. A KUB showed constipation. ADMISSION DIAGNOSES: 1. Severe hypernatremia. 2. Acute kidney injury. 3. Urinary tract infection. 4. Dementia. 5. Thrombocytopenia. DIAGNOSES AT THE TIME OF DISCHARGE: 1. Altered mental status on presentation secondary to metabolic encephalopathy, improved. 2. Advanced Alzheimer's dementia. 3. Severe hypernatremia on presentation with volume depletion, resolved. 4. Acute kidney injury secondary to volume depletion. 5. Pancytopenia, resolved. 6. Proteus mirabilis urinary tract infection. The patient got a full 5-day course of IV treatment. 7. Limited mobility due to old age and advanced dementia. 8. Limited oral intake related to severe Alzheimer's dementia. 9. Hypoactive delirium with underlying depression. Patient is on Zoloft. DISCHARGE MEDICATIONS: 1. Mirtazapine pain 7.5 p.o. every night at bedtime. 2. Aspirin 81 mg p.o. daily. 3. Multivitamin. 4. Metoprolol 25 mg p.o. every 12 hours. 5. Cyanocobalamin. 6. Senna 2 tablets b.i.d. 7. Zoloft 25 mg p.o. every night at bedtime. 8. Megace 200 mg b.i.d. 9. MiraLAX 17 grams p.o. daily. 10. Dulcolax 10 mg p.o. every night at bedtime p.r.n. PRESENTING COMPLAINT: Confusion. HISTORY OF PRESENTING COMPLAINT: Ms. Hardy is an 88-year-old female who is a resident of [facility] because of advanced dementia, hypertension, coronary artery disease. The patient was noted to be declining over the course of over a week with very poor oral intake, was not eating or drinking anything, was brought to the emergency department because she started getting very confused. Upon presenting to the emergency room, she was found to have a sodium level of 179, a BUN of 132, and creatinine of 3. Serum osmolarity was 409. The patient was also found to have dirty urine, was subsequently admitted for medical care. HOSPITAL COURSE: Ms. Hardy was admitted to the medical floor under telemetry monitoring, was fluid resuscitated. Nephrology and hematology/oncology were consulted. Throughout the hospital course, Ms. Hardy continued to show steady progress with improvement in serum sodium from 179, progressively got normal to 143 yesterday. Her BUN also got normalized, and her creatinine came down to 1. Her mentation improved some to her baseline and she was not confused or agitated any longer. During the hospital course, it was also found that she had Proteus UTI. She was treated with ceftriaxone for a total of 7 days. Ms. Hardy was also evaluated on multiple occasions by physical therapy. This morning, she refers to be feeling okay. The son was at the bedside. She was able to recognize the son. She was even saying some jokes with the son who was at the bedside. We think she is back to her baseline and she is fairly stable to be discharged. During the hospital course, she is drinking some and she is eating a little bit. I did, however, explain to the son that this is probably her baseline and that she is not going to be eating a whole lot as she used to because she is just not as active as before and that she would also trust old faces, like the family and eat from them than any provider, so it would be reasonable for the family to visit her on a regular basis and encourage her to drink and eat. All the discharge instructions were discussed with the son and the [id number] who were all at the bedside at the time of the encounter. It is recommended that Ms Hardy is ensured at least every 2 hours something minimum to drink to keep her well hydrated. We encourage that in a 24 hour period, she should be drinking anywhere between 800 to 2000 mL of fluid which will include drinks and water. TIME SPENT: The time spent for discharge is 37 minutes. cc: MD Ya Lam
== END 2018-12-31 14:13 | DRG 682 ==
LOC: ED 12:47 → 4N 18:12 → SUATTDRO 18:12
PROVIDERS: ATTEND Internal Medicine